=== PATIENT | male | born 1955 | race Two or more races ===

== ENCOUNTER 2018-11-13 13:14 | Emergency (ER) | payer OTHER ==
[~2018-11-13] VITALS: Ht 167.6 cm; Wt 77.1 kg
[2018-11-13] MEDS ORDERED: Morphine Sulfate 4mg/ml Inj (IV USE ONLY) IVP ONE (13:45)
--- NOTE | 2018-11-13 13:50 | NUR ---
ED Nurse Note:pt. was BIBA from home with c/o severe headache for 2 days, CT head was done immidiatly
[2018-11-13] MEDS ORDERED: Tetracaine 0.5% Opth 4ml Soln LEFT EYE ONE (14:00)
[2018-11-13] MEDS ORDERED: DiphenhydrAMINE 50mg/ml Inj IVP ONE (14:00)
--- NOTE | 2018-11-13 14:01 | Diagnostic Imaging Report ---
Indications: Headache, code stroke Technique: Spiral acquisitions obtained through the brain. Angled axial and coronal 5 x 5 mm slices were reconstructed. Total dose length product 1354.79 mGycm. CTDI vol(s) 70.38 mGy. Dose reduction achieved using automated exposure control Comparison: None. Findings: No acute intercranial hemorrhage or edema. No mass effect or midline shift. Normal zheng-white differentiation. Normal-sized ventricles and extra axial CSF spaces. Intact calvarium. The mastoids are clear. Visualized orbits and sinuses are unremarkable. Impression: Negative [employer] code stroke findings phoned to Dr. Rebolledo in the emergency room at the time of interpretation. The CT scanner at [facility] is accredited by the [employer] and the scans are performed using protocols designed to limit radiation exposure to as low as reasonably achievable to attain images of sufficient resolution adequate for diagnostic evaluation.
--- NOTE | 2018-11-13 14:06 | NUR ---
ED Nurse Note:blood sent to labs and pain meds given
[2018-11-13 14:21] LABS: BASOPHILS % (AUTO) 0.6 % (0.0-2.0); EOSINOPHILS % (AUTO) 0.8 % (0.0-3.0); HEMOGLOBIN 15.3 G/DL (14.2-18.0); LYMPHOCYTES % (AUTO) 24.4 % (20.0-45.0); MEAN CORPUSCULAR VOLUME 90 FL (80-99); MONOCYTES % (AUTO) 3.2 % (1.0-10.0); NEUTROPHILS % (AUTO) 71.1 % (45.0-75.0); PLATELET COUNT 293 K/UL (150-450); RED CELL DISTRIBUTION WIDTH 11.4 % (11.6-14.8); WHITE BLOOD COUNT 11.4 K/UL (4.8-10.8)
[2018-11-13 15:01] LABS: ANION GAP 14 mmol/L (5-15); BLOOD UREA NITROGEN 13 mg/dL (7-18); CALCIUM 9.3 MG/DL (8.5-10.1); CARBON DIOXIDE 22 MMOL/L (21-32); CHLORIDE 100 MMOL/L (98-107); CREATININE 1.1 MG/DL (0.55-1.30); POTASSIUM 3.8 MMOL/L (3.5-5.1); SODIUM 136 MMOL/L (136-145)
[2018-11-13 15:06] LABS: ALANINE AMINOTRANSFERASE 47 U/L (12-78); ALBUMIN 4.1 G/DL (3.4-5.0); ALBUMIN/GLOBULIN RATIO 1.2 (1.0-2.7); ALKALINE PHOSPHATASE 50 U/L (46-116); ASPARTATE AMINO TRANSFERASE 23 U/L (15-37); BILIRUBIN,TOTAL 0.7 MG/DL (0.2-1.0); CHOLESTEROL 205 MG/DL (< 200); HDL CHOLESTEROL 40 MG/DL (40-60); TRIGLYCERIDES 147 MG/DL (30-150)
--- NOTE | 2018-11-13 15:17 | NUR ---
HAND-OFF: Report given to Zara.
--- NOTE | 2018-11-13 15:54 | NUR ---
ED Nurse Note: pt off to MRI.
--- NOTE | 2018-11-13 16:40 | Diagnostic Imaging Report ---
Indication: Headache for 2 days Technique: sagittal T1 fast spin echo, axial T1 FLAIR, axial T2 FLAIR, axial T2 FS PROPELLER, axial T2* GRE, axial diffusion weighted images. ADC and exponential ADC maps generated Comparison: Reference made to CT scan performed earlier the same day Findings: Exam is somewhat limited due to patient motion artifact. Patient sedated, unable hold still for the exam. Motion artifact in particular degrades the T2 FLAIR and the GRE images. There is a cortical focus of restricted diffusion in the posterior medial left occipital lobe. This demonstrates mildly increased signal on the T2-weighted images. A few scattered punctate foci of decreased perfusion are seen in the posterior left temporal lobe near the zheng-white junction. There is also a focus of restricted diffusion in the periphery of the border of the left cerebral peduncle and the posterior inferior thalamus. No associated T2 signal abnormality is associated with these. In retrospect, there is very questionable low-attenuation in this area on the CT scan.. No mass effect nor midline shift there are a few scattered punctate areas of T2 hyperintensity are seen in the bilateral cerebral deep white matter. There is a patent cavum septum pellucidum.. Normal size ventricles and extra axial CSF spaces. Visualized orbits and sinuses are unremarkable. Impression: Left occipital cortical infarct and smaller left posterior temporal deep white matter and cerebral peduncular punctate infarcts. Findings suggest multiple emboli in the left posterior cerebral artery distribution Negative for acute intracranial bleed or mass effect Scattered punctate areas of T2 high signal in the bilateral deep white matter, most likely on the basis of chronic microvascular ischemic changes Critical value findings phoned to Dr. Juarez in the emergency room at the time of interpretation
--- NOTE | 2018-11-13 16:57 | Emergency Room Report ---
History of Present Illness General Chief Complaint: Headache Source: Patient Present Illness Allergies: Coded Allergies: No Known Allergies (Unverified , 11/13/18) Nursing Documentation-PMH Past Medical History: No History, Except For Hx Hypertension: Yes Hx Diabetes: Yes Physical Exam Vital Signs Date Time Temp Pulse Resp B/P (MAP) Pulse Ox O2 Delivery O2 Flow Rate FiO2 11/13/18 13:14 73 18 167/101 99 Room Air Procedures Critical Care Time Critical Care Time 50 minutes for multiple re-evaluations Critical finding including acute CVA Multiple neurological exams specialty consultation not including any procedural time Medical Decision Making Diagnostic Impression: Primary Impression: CVA (cerebral vascular accident) ER Course Please a further the initial history for the initial presentation and initial workup Essentially speaking to the family on Monday the patient reported increased headache He remained uncomfortable since then Today he became more dizzy and had increased nausea And was brought to the ER for further evaluation Patient has history of diabetes, and hypercholesterolemia Denies any chest pain or shortness of breath pain is bilateral temporal area patient holding his head and appears uncomfortable denies any neck pain or photophobia Denies any other focal weakness Initial CT imaging did not show any acute pathology Given the patient's discomfort MRI imaging was obtained And at this time speaking to radiology today for concern about multiple emboli to the region of the occipital region Patient's onset of symptoms were approximately 72 hours ago Patient does not meet criteria for any further acute intervention such as thrombolytic therapy This was also discussed with specialty neurology at [facility] Given this information [facility] emergency neurology was contacted they will accept the patient to their facility, recommended aspirin at this time patient is placed on a cardiac monitoring Require further pain medication At this time requires transfer for higher level of care Labs Test 11/13/18 13:45 11/13/18 14:45 White Blood Count 11.4 K/UL (4.8-10.8) Red Blood Count 5.00 M/UL (4.70-6.10) Hemoglobin 15.3 G/DL (14.2-18.0) Hematocrit 45.0 % (42.0-52.0) Mean Corpuscular Volume 90 FL (80-99) Mean Corpuscular Hemoglobin 30.5 PG (27.0-31.0) Mean Corpuscular Hemoglobin Concent 33.9 G/DL (32.0-36.0) Red Cell Distribution Width 11.4 % (11.6-14.8) Platelet Count 293 K/UL (150-450) Mean Platelet Volume 7.9 FL (6.5-10.1) Neutrophils (%) (Auto) 71.1 % (45.0-75.0) Lymphocytes (%) (Auto) 24.4 % (20.0-45.0) Monocytes (%) (Auto) 3.2 % (1.0-10.0) Eosinophils (%) (Auto) 0.8 % (0.0-3.0) Basophils (%) (Auto) 0.6 % (0.0-2.0) Prothrombin Time 10.8 SEC (9.30-11.50) Prothromb Time International Ratio 1.0 (0.9-1.1) Activated Partial Thromboplast Time 22 SEC (23-33) Sodium Level 136 MMOL/L (136-145) Potassium Level 3.8 MMOL/L (3.5-5.1) Chloride Level 100 MMOL/L (98-107) Carbon Dioxide Level 22 MMOL/L (21-32) Anion Gap 14 mmol/L (5-15) Blood Urea Nitrogen 13 mg/dL (7-18) Creatinine 1.1 MG/DL (0.55-1.30) Estimat Glomerular Filtration Rate > 60 mL/min (>60) Glucose Level 212 MG/DL (74-106) Calcium Level 9.3 MG/DL (8.5-10.1) Total Bilirubin 0.7 MG/DL (0.2-1.0) Aspartate Amino Transf (AST/SGOT) 23 U/L (15-37) Alanine Aminotransferase (ALT/SGPT) 47 U/L (12-78) Alkaline Phosphatase 50 U/L (46-116) Total Protein 7.4 G/DL (6.4-8.2) Albumin 4.1 G/DL (3.4-5.0) Globulin 3.3 g/dL Albumin/Globulin Ratio 1.2 (1.0-2.7) Triglycerides Level 147 MG/DL (30-150) Cholesterol Level 205 MG/DL (< 200) LDL Cholesterol 139 mg/dL (<100) HDL Cholesterol 40 MG/DL (40-60) Cholesterol/HDL Ratio 5.1 (3.3-4.4) EKG Diagnostic Results Rate: normal Rhythm: NSR ST Segments: no acute changes Rhythm Strip Diag. Results EP Interpretation: yes Rate: 60 Rhythm: NSR, no PVC's, no ectopy CT/MRI/US Diagnostic Results CT/MRI/US Diagnostic Results : Impression CT head no acute disease MRI headImpression: Left occipital cortical infarct and smaller left posterior temporal deep white matter and cerebral peduncular punctate infarcts. Findings suggest multiple emboli in the left posterior cerebral artery distribution Negative for acute intracranial bleed or mass effect Scattered punctate areas of T2 high signal in the bilateral deep white matter, most likely on the basis of chronic microvascular ischemic changes Last Vital Signs Date Time Temp Pulse Resp B/P (MAP) Pulse Ox O2 Delivery O2 Flow Rate FiO2 11/13/18 13:14 73 18 167/101 99 Room Air Status: improved Disposition: XFER [facility] Condition: Critical Referrals: [facility],REFERR[facility] (PCP) Robert Juarez DO Nov 13, 2018 16:57
[2018-11-13 17:01] VITALS: BP 159/93
[2018-11-13] MEDS ORDERED: UNOBMED (17:25)
--- NOTE | 2018-11-13 18:05 | NUR ---
ED Nurse Note: Put a gown on the patient with blankets provided. Pt restless and irritable. VSS. at the bed side.
[2018-11-13 18:56] VITALS: BP 128/85
--- NOTE | 2018-11-13 19:10 | NUR ---
HAND-OFF: Report given to Julien JEFFERY RN.
[2018-11-13 19:57] VITALS: BP 120/65
--- NOTE | 2018-11-13 20:18 | NUR ---
ED Nurse Note: Report given to EFRAÍN Pittman of [facility]. Patient to be admitted to Telemetry 428 under MD Clarissa. ETA pending.
--- NOTE | 2018-11-13 20:30 | NUR ---
ED Nurse Note: Report given to EFRAÍN Campos, transport nurse of [facility]. ETA 2200.
[2018-11-13 21:45] VITALS: BP 120/65
[2018-11-13] MEDS ORDERED: Morphine Sulfate 2mg/ml Inj(IV/IM USE ONLY) IVP ONE ×2 (21:45→22:00)
--- NOTE | 2018-11-13 21:45 | NUR ---
ED Nurse Note: PT LEFT WITH [facility]. ACCOMPANIED BY EFRAÍN YA. PT LEFT WITH IV INTACT AND PATENT.
--- NOTE | 2018-11-16 13:25 | Cardiology Report ---
APPROVED REPORT EKG Measurement Heart [id number] Normal sinus rhythm Nonspecific T wave abnormality Abnormal ECG
== END 2018-11-13 21:45 | disposition short-term general hospital (02) ==
LOC: EDBD 13:14 → EMR 13:51
DX: I63.9 Cerebral infarction, unspecified (principal); E11.9 Type 2 diabetes mellitus without complications; E78.00 Pure hypercholesterolemia, unspecified
CPT/HCPCS: 36415; 70450; 70551; 80053; 80061; 82962; 85025; 85610; 85651; 85730; 93005; 96374; 96375; 96376; 99284; J0780; J1200; J2270; J2405